=== PATIENT | female | born 1975 | race Caucasian/White ===

== ENCOUNTER → 2024-07-03 | Outpatient (CLI) | payer OTHER ==
[~2024-07-03] MED LIST: Aldactone100 MG
== END | disposition home or self-care (01) ==
LOC: LAB SHORT 08:08
DX: N20.0 Calculus of kidney (principal)
CPT/HCPCS: 81050

== ENCOUNTER → 2025-08-02 | Outpatient (CLI) | payer OTHER ==
[2025-08-08 15:56] LABS: CALCIUM, URINE - PER 24H 504 mg/d (100-250); CALCIUM, URINE - PER VOLUME 28.0 mg/dL; CHLORIDE, URINE - PER 24H 122 mmol/d (140-250); CHLORIDE, URINE - PER VOLUME 68 mmol/L; CITRIC ACID, URINE - PER 24H 824 mg/d (320-1240); CITRIC ACID,URINE - PER VOLUME 458 mg/L; CREATININE, URINE - PER 24H 1350 mg/d (700-1600); CREATININE, URINE - PER VOLUME 75 mg/dL; HOURS COLLECTED 24 hr; MAGNESIUM, URINE - PER VOLUME 10.8 mg/dL; MAGNESIUM, URINE PER 24H 194 mg/d (12-199); OXALATE, URINE - PER 24H 45 mg/d (13-40); OXALATE, URINE - PER VOLUME 25 mg/L; PHOSPHORUS, URINE - PER 24H 666 mg/d (400-1300); PHOSPHORUS, URINE - PER VOLUME 37 mg/dL; POTASSIUM, URINE - PER 24H 74 mmol/d (25-125); POTASSIUM, URINE - PER VOLUME 41 mmol/L; SODIUM, URINE - PER 24H 124 mmol/d (51-286); SODIUM, URINE - PER VOLUME 69 mmol/L; SULFATE, URINE - PER 24H 29 mmol/d (6-30); SULFATE, URINE - PER VOLUME 16 mmol/L; URIC ACID, URINE - PER 24H 407 mg/d (250-750); URIC ACID, URINE - PER VOLUME 22.6 mg/dL; URINE SUPERSATURATION INTERP Abnormal; URINE SUPERSATURATION, CAHPO4 4.09; URINE SUPERSATURATION, CAOX 13.64; URINE SUPERSATURATION, UA CALC 0.21
== END ==
LOC: LAB 07:43 → LAB SHORT 07:43 → EDSTATUS 12-04 14:10 → LAB FUT 12-04 14:10
PROVIDERS: Nurse Practitioner Acute Care
DX: N20.0 Calculus of kidney (principal); R82.994 Hypercalciuria
CPT/HCPCS: 81003; 81050; 82131; 82140; 82340; 82436; 82507; 82570; 83735; 83935; 83945; 84105; 84133; 84300; 84392; 84560